=== PATIENT | female | born 1950 | race Two or more races ===

== ENCOUNTER 2022-01-03 22:40 | Inpatient (IN) | payer MEDICARE, OTHER ==
[~2022-01-03] VITALS: Ht 157.5 cm; Wt 68.0 kg
--- NOTE | 2022-01-03 23:47 | NUR ---
JEFF FROM HOME TO ER BED 8. AAOX4. NOT IN RESP DISTRESS, BREATHING EVEN AND UNLABORED. SATTING @ 96% ON RA. BROUGHT IN FOR COUGH, INTERMITENT FEVER, NAUSEA, VOMMITNG AND LOWER ABD PAIN.PT REPORTS THAT SHE HAS BEEN COVID POSTIVE SINCE SUNDAY. AWAITING MD FOR EVAL
[2022-01-04] MEDS ORDERED: IV NS 0.9% 1,000 ML BAG IV ONE ×2 (01:00→02:30)
--- NOTE | 2022-01-04 01:22 | NUR ---
IV LINE ESTABLISHED, LHAND 20G
--- NOTE | 2022-01-04 01:23 | NUR ---
COVID SWAB DONE AND SENT TO LAB
[2022-01-04 01:30] LABS: HEMATOCRIT 26 % (33-45); HEMOGLOBIN 8.7 g/dL (11.5-14.8); LYMPHOCYTES # (AUTO) 0.6 K/uL (0.8-4.8); LYMPHOCYTES % (AUTO) 2.6 % (20.0-44.0); MEAN CORPUSCULAR HGB CONC 33 g/dl (31.0-36.0); MEAN CORPUSCULAR VOLUME 83 fL (82-100); MONOCYTES # (AUTO) 1.5 K/uL (0.1-1.30); MONOCYTES % (AUTO) 6.6 % (2.0-12.0); NEUTROPHILS # (AUTO) 21.3 K/uL (1.8-8.9); NEUTROPHILS % (AUTO) 90.8 % (43.0-81.0); PLATELET COUNT (AUTO) 314 K/uL (150-450); RED BLOOD CELL COUNT(AUTO) 3.17 MIL/uL (4.0-5.2); WHITE BLOOD COUNT (AUTO) 23.5 K/uL (4.3-11.0)
--- NOTE | 2022-01-04 01:41 | NUR ---
URINE SAMPLE COLLECTED AND SENT TO LAB
[2022-01-04 02:14] LABS: CALCIUM, SERUM 9.2 mg/dL (8.5-10.1); CARBON DIOXIDE 23 mmol/L (21-32); CHLORIDE 95 mmol/L (98-107); CREATININE 1.6 mg/dL (0.6-1.3); GLUCOSE 122 mg/dL (74-106); POTASSIUM 3.9 mmol/L (3.5-5.1); SODIUM SERUM 130 mmol/L (136-145); UREA NITROGEN, BLOOD 22 mg/dL (7-18)
[2022-01-04 02:16] LABS: BILIRUBIN,URINE NEGATIVE (NEGATIVE); COLOR,URINE YELLOW (YELLOW); LEUKOCYTE ESTERASE ,URINE MODERATE (NEGATIVE); NITRITE, URINE POSITIVE (NEGATIVE); PH,URINE 8.5 (5.0-8.0); PROTEIN,URINE 100 mg/dl (NEGATIVE); UGLUCOSE NEGATIVE (NEGATIVE); UROBILINOGEN,URINE 0.2 EU/dL (0.2)
[2022-01-04] MEDS ORDERED: MEROPENEM 1 G in IV NS 0.9% 100 ML IV ONE (02:30)
[2022-01-04] MEDS ORDERED: VANCOMYCIN 1 GM in IV D5W 250 ML IV ONE (02:30)
[2022-01-04 02:33] LABS: ALANINE AMINOTRANSFERASE 135 U/L (12-78); ALBUMIN 2.2 g/dL (3.4-5.0); ALKALINE PHOSPHATASE 191 U/L (46-116); ASPARTATE AMINOTRANSFERASE 104 U/L (15-37); BILIRUBIN,DIRECT 0.2 mg/dL (0.0-0.2); BILIRUBIN,TOTAL 0.5 mg/dL (0.2-1.0)
[2022-01-04 02:40] LABS: BACTERIA,URINE Many /HPF (None Seen); SQUAMOUS EPITHELIAL CELL,UR Moderate /HPF (None Seen); WBC,URINE 21-50 /HPF (0-3)
[2022-01-04] MEDS ORDERED: VANCOMYCIN 1 GM VIAL ONE (02:43)
[2022-01-04] MEDS ORDERED: MEROPENEM 1 G VIAL IV ONE (02:43)
--- NOTE | 2022-01-04 03:12 | NUR ---
MRSA SWAB COLLECTED AND SENT TO LAB. PATIENT'S BELONGINGS LIST DONE.
[2022-01-04] MEDS ORDERED: Z GUARD REMEDY 4 OZ OINT TP PRN (03:30)
[2022-01-04 04:15] VITALS: BP 120/79
--- NOTE | 2022-01-04 04:15 | NUR ---
RN CARE MANAGER NOTE RECEIVED PATIENT VIA DEVAN. EMT TECH HELPED AMB TO BED. PATIENT HAS A RIGHT LEG CAST FOR LYMPHEDEMA. A/OX4. TOLERATING ROOM AIR. NO RESPIRATORY DISTRESS. NO COMPLAINTS OF PAIN, HAS ABDOMINAL CRAMPING IN RLQ, STATES FEELS CONSTIPATED. SINUS RHYTHM ON THE MONITOR. SKIN IS INTACT. VITAL SIGNS AND BELONGING LIST COMPLETED BY SPLITTER HAND. LEFT HAND #20 INTACT AND PATENT. PATIENT ALSO HAS A RIGHT CHEST WALL PORT-A- CATH. LLQ COLOSTOMY BAG INTACT. RIGHT BACK NEPHROTOMY WITH DRESSING DRY AND INTACT. BED IS LOW AND LOCKED, HOB ELEVATED IN SEMI FOWLERS, SIDE RAISL UP X2, CALL LIGHT WITHIN REACH. EXPLAINED USE.
--- NOTE | 2022-01-04 04:29 | NUR ---
PT TRANSFERRED TO 108 VIA ACLS
--- NOTE | 2022-01-04 04:44 | NUR ---
RN NOTE RECEIVED CRITICAL LAB FOR PROCAL 2.34, ADRIA LIRA NP INFORMED. ALSO INFORMED GLEN LIRA THAT PATIENT REFUSE HEPARIN AND ANY ANTICOAGULANT, WANTS TO SPEAK WITH MD FIRST.
[2022-01-04] MEDS: IV D5/0.45 NACL 1,000 ML IV PRN ×2 (04:54→18:53)
--- NOTE | 2022-01-04 06:43 | NUR ---
RN CLOSING NOTE PATIENT IS A/OX4. ROOM AIR. NO RESP DISTRESS. NO PAIN. SINUS RHYTHM. IV RUNNING D51/2 NS. BED IS LOW AND LOCKED, HOB ELEVATED IN SEMI FOWLERS, SIDE RAILS UP X2, CALL LIGHT WITHIN REACH.
[2022-01-04 07:08] LABS: BASOPHILS % (AUTO) 0.1 % (0.0-2.0); EOSINOPHILS % (AUTO) 0.1 % (0.0-6.0); HEMATOCRIT 23 % (33-45); HEMOGLOBIN 7.8 g/dL (11.5-14.8); LYMPHOCYTES # (AUTO) 0.8 K/uL (0.8-4.8); MEAN CORPUSCULAR HGB CONC 34 g/dl (31.0-36.0); MEAN CORPUSCULAR VOLUME 82 fL (82-100); MONOCYTES # (AUTO) 1.3 K/uL (0.1-1.30); MONOCYTES % (AUTO) 6.2 % (2.0-12.0); NEUTROPHILS % (AUTO) 89.6 % (43.0-81.0); PLATELET COUNT (AUTO) 272 K/uL (150-450); RED BLOOD CELL COUNT(AUTO) 2.85 MIL/uL (4.0-5.2); WHITE BLOOD COUNT (AUTO) 20.1 K/uL (4.3-11.0)
--- NOTE | 2022-01-04 07:35 | NUR ---
RN NOTE RECEIVED PT AWAKE, ALERT AND ORIENTED. NOT IN RESPIRATORY DISTRESS. CONTINUES ON ROOM AIR. WITH IV ACCESS ON L HAND G20 RUNNING WITH D5 1/2NS @75CC/HR. TOLERATING WELL. SAFETY MEASURES FOLLOWED. NEPHROSTOMY TUBE IN PLACE, DRAINING WELL. WILL CONTINUE TO MONITOR.
[2022-01-04 07:38] LABS: CREATININE 1.6 mg/dL (0.6-1.3); POTASSIUM 3.8 mmol/L (3.5-5.1)
[2022-01-04] MEDS: PANTOPRAZOLE 40 MG TABLET.DR PO SCH (07:42)
[2022-01-04] MEDS ORDERED: OXYC10TA49 PO (07:48)
[2022-01-04] MEDS ORDERED: LEVO100T9 PO (07:48)
[2022-01-04] MEDS ORDERED: ATOR20TA PO (07:48)
[2022-01-04] MEDS ORDERED: SERT50TA12 PO (07:48)
[2022-01-04 08:45] LABS: CALCIUM, SERUM 8.6 mg/dL (8.5-10.1); MAGNESIUM 1.9 mg/dL (1.8-2.4)
[2022-01-04] MEDS ORDERED: HEPARIN SODIUM, PORCINE 5000 UNITS/1 ML VIAL SQ SCH (09:00)
[2022-01-04 12:00] VITALS: BP 128/65
[2022-01-04 16:00] VITALS: BP 130/58
[2022-01-04] MEDS: MEROPENEM 1 G in IV NS 0.9% 100 ML IV SCH (17:02)
--- NOTE | 2022-01-04 19:04 | NUR ---
RN NOTE PT RESTING IN BED. AWAKE, ALERT AND ORIENTED. NOT IN RESPIRATORY DISTRESS. CONTINUES ON ROOM AIR. WITH IV ACCESS ON L HAND G20 RUNNING WITH D5 1/2NS @75CC/HR. TOLERATING WELL. SAFETY MEASURES FOLLOWED. NEPHROSTOMY TUBE IN PLACE, DRAINING WELL. WILL ENDORSE TO NEXT SHIFT. ALL DUE MEDICATIONS GIVEN.
[2022-01-04] MEDS: HYDROCODONE/APAP 5/325MG TABLET PO PRN (19:26)
--- NOTE | 2022-01-04 19:30 | NUR ---
C.O.D. BILLER OPENING NOTE RECEIVED PT IN BED, ALERT/ORIENTED X 4. ABLE TO MAKE NEEDS KNOWN. ON ROOM AIR, TOLERATING WELL WITH NO SIGNS OF ACUTE DISTRESS NOTED AT THIS TIME. NSR ON TELE MONITOR SATING AT 99%. WITH IV ACCESS ON L HAND #20g INFUSING D5 1/2 NS @75CC/HR. PT NOTED WITH R NEPHROSTOMY, DRAINING WELL AND LLQ COLOSTOMY. ALL SAFETY MEASURES IN PLACE. BED LOCKED IN LOWEST POSITION, BED ALARM ON. CALL LIGHT WITHIN REACH. WILL CONTINUE TO MONITOR FOR ANY CHANGES.
[2022-01-04 20:00] VITALS: BP 137/75
[2022-01-04] MEDS: ACETAMINOPHEN 325 MG TABLET PO PRN (20:18)
[2022-01-05] VITALS: BP 112/59
[2022-01-05] MEDS: MEROPENEM 1 G in IV NS 0.9% 100 ML IV SCH ×2 (01:09→13:59)
[2022-01-05] MEDS: VANCOMYCIN 0.75 GM in IV D5W 250 ML IV SCH (02:01)
[2022-01-05 04:00] VITALS: BP 138/58
[2022-01-05] MEDS: ACETAMINOPHEN 325 MG TABLET PO PRN ×2 (06:49→22:18)
[2022-01-05] MEDS: HYDROCODONE/APAP 5/325MG TABLET PO PRN ×2 (07:01→16:33)
[2022-01-05 07:20] LABS: BASOPHILS % (AUTO) 0.2 % (0.0-2.0); EOSINOPHILS % (AUTO) 0.3 % (0.0-6.0); HEMATOCRIT 25 % (33-45); HEMOGLOBIN 8.5 g/dL (11.5-14.8); LYMPHOCYTES # (AUTO) 0.7 K/uL (0.8-4.8); LYMPHOCYTES % (AUTO) 3.9 % (20.0-44.0); MEAN CORPUSCULAR HGB CONC 34 g/dl (31.0-36.0); MEAN CORPUSCULAR VOLUME 82 fL (82-100); MONOCYTES # (AUTO) 0.8 K/uL (0.1-1.30); MONOCYTES % (AUTO) 4.7 % (2.0-12.0); NEUTROPHILS # (AUTO) 16.1 K/uL (1.8-8.9); NEUTROPHILS % (AUTO) 90.9 % (43.0-81.0); PLATELET COUNT (AUTO) 343 K/uL (150-450); RED BLOOD CELL COUNT(AUTO) 3.08 MIL/uL (4.0-5.2); WHITE BLOOD COUNT (AUTO) 17.7 K/uL (4.3-11.0)
--- NOTE | 2022-01-05 07:48 | NUR ---
AGRICULTURAL CROP FARM MANAGER CLOSING NOTE PT IN BED, ALERT/ORIENTED X 4. ABLE TO MAKE NEEDS KNOWN. ON ROOM AIR, TOLERATING WELL WITH NO SIGNS OF ACUTE DISTRESS NOTED. NSR ON TELE MONITOR SATING AT 98%. WITH IV ACCESS ON L HAND #20g INFUSING D5 1/2 NS @75CC/HR. PT NOTED WITH R NEPHROSTOMY, DRAINING WELL AND LLQ COLOSTOMY. ALL DUE MEDS GIVEN. ALL SAFETY MEASURES FOLLOWED. BED LOCKED IN LOWEST POSITION, BED ALARM ON. CALL LIGHT WITHIN REACH. WILL ENDORSE TO AM SHIFT NURSE FOR BERNADETTE.
[2022-01-05 08:00] VITALS: BP 118/61
[2022-01-05 08:14] LABS: ALBUMIN 1.9 g/dL (3.4-5.0); BILIRUBIN,TOTAL 0.4 mg/dL (0.2-1.0); CREATININE 1.4 mg/dL (0.6-1.3); PHOSPHORUS 2.9 mg/dL (2.5-4.9); POTASSIUM 3.6 mmol/L (3.5-5.1); TOTAL PROTEIN, SERUM 6.8 g/dL (6.4-8.2)
[2022-01-05] MEDS: PANTOPRAZOLE 40 MG TABLET.DR PO SCH (08:54)
[2022-01-05 09:00] LABS: MAGNESIUM 1.8 mg/dL (1.8-2.4)
[2022-01-05 12:00] VITALS: BP 132/66
[2022-01-05] MEDS: LEVOTHYROXINE SODIUM 100 MCG TABLET PO SCH (15:09)
[2022-01-05] MEDS: SERTRALINE HCL 50 MG TABLET PO SCH (15:10)
[2022-01-05 16:00] VITALS: BP 138/74
[2022-01-05] MEDS: APIXABAN 5 MG TABLET PO SCH (18:10)
--- NOTE | 2022-01-05 18:40 | NUR ---
RN CLOSING NOTE PATIENT IS SITTING IN RESTING. A/O TIMES 4. O2 SATURATION AT 98%, READING NORMAL SINUS ON THE MONITOR. NO SIGNS OF DISTRESS PRESENT. WILL ENDORSE TO ONCOMING NURSE FOR BERNADETTE.
[2022-01-05 20:00] VITALS: BP 135/71
--- NOTE | 2022-01-05 20:00 | NUR ---
RN NOTE RECEIVED PT IN BED. AOX4. NOT IN ANY DISTRESS. DENIES ANY PAIN OR SOB. 97% ON RA. IV LHAND PATENT AND INTACT ON D51/2 NS AT 75ML/HR. NEPHROSTOMY IN PLACE DRAINING CLEAR URINE OUTPUT. COLOSTOMY BAG IN PLACE. WILL CONTINUE TO MONITOR.
[2022-01-05] MEDS: IV D5/0.45 NACL 1,000 ML IV PRN (21:07)
[2022-01-05] MEDS: MAGNESIUM HYDROXIDE 30 ML UDC PO PRN (21:07)
[2022-01-05] MEDS: ATORVASTATIN 10 MG TABLET PO SCH (21:08)
--- NOTE | 2022-01-05 22:18 | NUR ---
RN NOTE PT COMPLAINED ON PAIN ON R LEG. REQUESTED FOR TYLENOL. GIVEN ORDERED. WILL CONTINUE TO MONITOR
--- NOTE | 2022-01-05 23:00 | NUR ---
RN NOTE RELIEVED WITH PAIN.
[2022-01-06] VITALS (7 sets, daily range): BP systolic 132–155; BP diastolic 60–100
[2022-01-06] MEDS: MEROPENEM 1 G in IV NS 0.9% 100 ML IV SCH ×2 (01:44→13:57)
--- NOTE | 2022-01-06 02:01 | NUR ---
URINE COLLECTED. CALLED LAB FOR LABOUR MARKET ECONOMIST
[2022-01-06] MEDS: VANCOMYCIN 0.75 GM in IV D5W 250 ML IV SCH (02:38)
--- NOTE | 2022-01-06 07:00 | NUR ---
RN NOTE PT SLEEPING AROUSES EASILY. NOT IN ANY DISTRESS. TOLERATES ROOM AIR. REMAIN AFEBRILE. ABLE TO MAKE NEEDS KNOWN. ASSISTED TO BEDSIDE COMMODE. R LEG SWELLING, ELEVATED. CONTINUE ON IVFLUIDS, D5 1/2 NS, INFUSING WELL. NO SIGNS OF INFILTRATION NOTED. NO BM NOTED. NEPHROSTOMY IN PLACE, WITH 1000ML OUTPUT AND 3X VOIDED. WILL ENDORSE TO NEXT SHIFT NURSE FOR BERNADETTE.
--- NOTE | 2022-01-06 07:20 | NUR ---
RN OPENING NOTES: RECEIVED PT AWAKE, ALERT AND ORIENTED X 4. NOT IN RESPIRATORY DISTRESS. CONTINUES ON ROOM AIR. WITH IV ACCESS ON L HAND G20 RUNNING WITH D5 1/2NS @75CC/HR. TOLERATING WELL. SAFETY MEASURES FOLLOWED. NEPHROSTOMY TUBE IN PLACE, DRAINING WELL. CONTINUE DROPLET AND CONTACT ISOLATION FOR COVID , WILL CONTINUE TO MONITOR.
[2022-01-06] MEDS: PANTOPRAZOLE 40 MG TABLET.DR PO SCH (07:42)
[2022-01-06 07:49] LABS: BASOPHILS % (AUTO) 0.2 % (0.0-2.0); EOSINOPHILS % (AUTO) 0.9 % (0.0-6.0); HEMATOCRIT 25 % (33-45); HEMOGLOBIN 8.2 g/dL (11.5-14.8); LYMPHOCYTES # (AUTO) 0.8 K/uL (0.8-4.8); LYMPHOCYTES % (AUTO) 5.8 % (20.0-44.0); MEAN CORPUSCULAR HGB CONC 33 g/dl (31.0-36.0); MEAN CORPUSCULAR VOLUME 83 fL (82-100); MONOCYTES # (AUTO) 1.2 K/uL (0.1-1.30); MONOCYTES % (AUTO) 8.7 % (2.0-12.0); NEUTROPHILS # (AUTO) 11.3 K/uL (1.8-8.9); NEUTROPHILS % (AUTO) 84.4 % (43.0-81.0); PLATELET COUNT (AUTO) 361 K/uL (150-450); RED BLOOD CELL COUNT(AUTO) 3.01 MIL/uL (4.0-5.2); WHITE BLOOD COUNT (AUTO) 13.4 K/uL (4.3-11.0)
[2022-01-06] MEDS: SERTRALINE HCL 50 MG TABLET PO SCH (09:12)
[2022-01-06] MEDS: LEVOTHYROXINE SODIUM 100 MCG TABLET PO SCH (09:13)
[2022-01-06] MEDS: APIXABAN 5 MG TABLET PO SCH ×2 (09:19→17:36)
[2022-01-06] MEDS: HYDROCODONE/APAP 5/325MG TABLET PO PRN ×2 (09:31→20:31)
[2022-01-06] MEDS: MAGNESIUM HYDROXIDE 30 ML UDC PO PRN (09:31)
[2022-01-06 13:45] LABS: BAND % (MANUAL) 1 % (0.0-5.0); LYMPHOCYTES % (MANUAL) 6 % (16-48); MONOCYTES % (MANUAL) 8 % (0-11.0); MYELOCYTES % 1 % (0-0); NEUTROPHILS % (MANUAL) 84 (42-76)
[2022-01-06] MEDS: IV D5/0.45 NACL 1,000 ML IV PRN (13:59)
[2022-01-06 16:49] LABS: ALBUMIN 1.7 g/dL (3.4-5.0); BILIRUBIN,TOTAL 0.3 mg/dL (0.2-1.0); CALCIUM, SERUM 8.6 mg/dL (8.5-10.1); CREATININE 1.3 mg/dL (0.6-1.3); MAGNESIUM 1.8 mg/dL (1.8-2.4); PHOSPHORUS 3.1 mg/dL (2.5-4.9); POTASSIUM 4.1 mmol/L (3.5-5.1); TOTAL PROTEIN, SERUM 6.4 g/dL (6.4-8.2)
--- NOTE | 2022-01-06 19:10 | NUR ---
RN NOTES RECEIVED REPORT FROM MORNING RN. PATIENT IN BED A/O X4 ABLE TO MAKE NEEDS KNOWN. ON ROOM AIR TOLERATED WELL SATING 96% NO SOB NO DISTRESS NOTED AT THIS TIME. WITH IV ACCESS AT R AC # 18 PATENT FLUSHES WELL. WITH ONGOING IVF D5 1/2 NS RUNNING AT 75 CC/HR. WITH COLOSTOMY TUBE INTACT, NEPHROSTOMY TUBE PATENT DRAINING YELLOWISH URINE. ALL SAFETY MEASURES IN PLACE AT ALL TIMES. HOB ELEVATED. CALL LIGHT WITHIN REACH. BED ON LOWEST POSITION AND LOCKED. WILL CLOSELY MONITOR THE PATIENT
--- NOTE | 2022-01-06 19:33 | NUR ---
HOSPITALITY SPECIALIST CLOSING NOTE PT IN BED, ALERT/ORIENTED X 4. ABLE TO MAKE NEEDS KNOWN. ON ROOM AIR, TOLERATING WELL WITH NO SIGNS OF ACUTE DISTRESS NOTED. SINUS RHYTHM ON TELE MONITOR SATING AT 98%. WITH IV ACCESS ON R AC #18g INFUSING D5 1/2 NS @75CC/HR. PT NOTED WITH R NEPHROSTOMY, DRAINING WELL AND LLQ COLOSTOMY. ALL DUE MEDS GIVEN. ALL SAFETY MEASURES FOLLOWED. BED LOCKED IN LOWEST POSITION, BED ALARM ON. CALL LIGHT WITHIN REACH. WILL ENDORSE TO ONCOMING SHIFT NURSE FOR BERNADETTE.
--- NOTE | 2022-01-06 21:15 | NUR ---
RN NOTES PATIENT COMPLAINING THAT NORCO IS NOT WORKING ON HER PAIN AND SHE WANT OXYCODONE 20MG. AND NOTED WITH SMALL AMOUNT OF BLOOD DISCHARGE WHILE USING BEDSIDE COMMODE. DR LIRA INFORMED.
[2022-01-06] MEDS: ACETAMINOPHEN 325 MG TABLET PO PRN (21:43)
[2022-01-06] MEDS: ATORVASTATIN 10 MG TABLET PO SCH (21:43)
--- NOTE | 2022-01-06 22:00 | NUR ---
RN NOTES DR LIRA MADE A ORDER FOR OXYCODONE 5 MG GIVE 2 TABS PO. AND WILL INFORMED DR MACHUCA IN THE MORNING ABOUT THE ELIQUIS ORDER. WILL MONITOR ANY BLEEDING OR ANY CHANGES IN CONDITION
[2022-01-06] MEDS: oxyCODONE IR immediate release 5 MG PO PRN (23:57)
[2022-01-07] VITALS: BP 149/96
[2022-01-07] MEDS: MEROPENEM 1 G in IV NS 0.9% 100 ML IV SCH ×2 (02:38→14:13)
[2022-01-07] MEDS: VANCOMYCIN 0.75 GM in IV D5W 250 ML IV SCH (03:43)
[2022-01-07 04:00] VITALS: BP 143/73
[2022-01-07] MEDS: oxyCODONE IR immediate release 5 MG PO PRN ×3 (05:57→22:15)
--- NOTE | 2022-01-07 06:47 | NUR ---
RN NOTES PATIENT REMAINS STABLE NO SIGNIFICANT CHANGES IN HEALTH CONDITION. ALL DUE MEDS GIVEN ORDERED. PATIENT STILL ON TELE MONITOR SR. PATIENT WITH COLOSTOMY TUBE AND NEPHROSTOMY TUBE INTACT DRAINING YELLOWISH URINE. WITH IV ACCESS AT R AC PATENT CONNECTED ON CONTINUOS IVF OF D5 1/2 NS @75CC/HR. ALL SAFETY MEASURES IN PLACE AT ALL TIMES. WILL ENDORSED TO MORNING RN FOR BERNADETTE
--- NOTE | 2022-01-07 07:15 | NUR ---
MEDICAL TECHNOLOGIST GENERALIST OPENING NOTES: RECEIVED PT FOR CONTINUITY OF CARE. PATIENT A/OX4 IN NO S/SX OF ACUTE DISTRESS AT THIS TIME; CURRENTLY ON ROOM AIR; WITH 02 SAT 98% AT THIS TIME. WILL ENSURE SAFETY MEASURES WITHIN THE SHIFT. HEAD OF BED ELEVATED. BED IS LOCKED, IN LOWEST POSITION AND SIDE RAILS UP. CALL LIGHT WITHIN REACH OF THE PATIENT. APPLICABLE ISOLATION PRECAUTIONS IN PLACE. WILL CONTINUE TO MONITOR AND REASSESS FOR ANY CHANGES AND WILL CARRY OUT ANY ONGOING AND ACTIVE MD ORDER.
[2022-01-07 07:29] LABS: BASOPHILS # (AUTO) 0.1 K/uL (0.0-0.2); BASOPHILS % (AUTO) 0.5 % (0.0-2.0); EOSINOPHILS % (AUTO) 1.4 % (0.0-6.0); HEMATOCRIT 23 % (33-45); HEMOGLOBIN 7.8 g/dL (11.5-14.8); LYMPHOCYTES % (AUTO) 8.8 % (20.0-44.0); MEAN CORPUSCULAR HGB CONC 34 g/dl (31.0-36.0); MEAN CORPUSCULAR VOLUME 81 fL (82-100); MONOCYTES # (AUTO) 1.5 K/uL (0.1-1.30); MONOCYTES % (AUTO) 12.9 % (2.0-12.0); NEUTROPHILS # (AUTO) 8.8 K/uL (1.8-8.9); NEUTROPHILS % (AUTO) 76.4 % (43.0-81.0); PLATELET COUNT (AUTO) 363 K/uL (150-450); RED BLOOD CELL COUNT(AUTO) 2.82 MIL/uL (4.0-5.2); WHITE BLOOD COUNT (AUTO) 11.5 K/uL (4.3-11.0)
[2022-01-07] MEDS: PANTOPRAZOLE 40 MG TABLET.DR PO SCH (07:44)
[2022-01-07 07:51] LABS: ALBUMIN 1.7 g/dL (3.4-5.0); BILIRUBIN,TOTAL 0.3 mg/dL (0.2-1.0); CALCIUM, SERUM 8.6 mg/dL (8.5-10.1); CREATININE 1.3 mg/dL (0.6-1.3); MAGNESIUM 1.8 mg/dL (1.8-2.4); PHOSPHORUS 3.2 mg/dL (2.5-4.9); POTASSIUM 3.9 mmol/L (3.5-5.1); TOTAL PROTEIN, SERUM 6.2 g/dL (6.4-8.2)
[2022-01-07 08:00] VITALS: BP 127/64
[2022-01-07] MEDS: LEVOTHYROXINE SODIUM 100 MCG TABLET PO SCH (08:23)
[2022-01-07] MEDS: SERTRALINE HCL 50 MG TABLET PO SCH (08:23)
[2022-01-07] MEDS: APIXABAN 5 MG TABLET PO SCH ×2 (09:00→16:29)
[2022-01-07 09:37] LABS: BAND % (MANUAL) 1 % (0.0-5.0); EOSINOPHILS % (MANUAL) 3 % (0-4); LYMPHOCYTES % (MANUAL) 9 % (16-48); MONOCYTES % (MANUAL) 11 % (0-11.0); NEUTROPHILS % (MANUAL) 76 (42-76)
[2022-01-07] MEDS: ONDANSETRON HCL/PF 4 MG/2 ML VIAL IVP PRN (11:40)
[2022-01-07] MEDS: IV D5/0.45 NACL 1,000 ML IV PRN (11:48)
[2022-01-07 12:00] VITALS: BP 192/101
[2022-01-07] MEDS: MAGNESIUM HYDROXIDE 30 ML UDC PO PRN (13:00)
--- NOTE | 2022-01-07 13:35 | NUR ---
rn notes: seen by DR Franchesca brown made aware of the bleeding she has, she is refusing eliquis and that she vomited x 1, no new orders at this time
--- NOTE | 2022-01-07 13:50 | NUR ---
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
--- NOTE | 2022-01-07 14:00 | NUR ---
RN notes: midline inserted to left upper arm with no complications noted at this time
[2022-01-07 16:00] VITALS: BP 146/59
--- NOTE | 2022-01-07 16:29 | NUR ---
RN notes: pt refused to take eliquis, explained risk and benefits still refuses
--- NOTE | 2022-01-07 19:10 | NUR ---
RN OPENING NOTES RECEIVED PATIENT ON BED, ALERT AND VERBALLY RESPONSIVE, ON ROOM AIR SATING AT 97%, RESPIRATORY EVEN AND UNLABORED, NO SOB NOTED, NOT IN ACUTE DISTRESS. REMAIN AFEBRILE. NOTED WITH MEMO MID LINE, PATENT, INTACT. FLUSHED WITH NS, NO S/S OF INFILTRATION NOTED AT SITE. RUNNING WITH D5 1/2 NS @ 75 ML/HR. NOTED WITH RIGHT NEPHROSTOMY TUBE CONNECTED TO BAG PATENT, INTACT DRAINING WITH CLEAR YELLOW URINE VIA GRAVITY. WITH COLOSTOMY BAG INTACT NO LEAKING, NO IRRITATION AROUND THE STOMA. ALL SAFETY MEASURE PROVIDED. BED IN LOWEST POSITION, LOCKED. BED ALARM ARMED. CALL LIGHT WITH IN REACH. CONTINUE TO MONITOR.
[2022-01-07 20:00] VITALS: BP 126/54
[2022-01-07] MEDS: ATORVASTATIN 10 MG TABLET PO SCH (21:54)
--- NOTE | 2022-01-07 22:10 | NUR ---
RN NOTES PATIENT C/O RIGHT LEG PAIN, BP 130/70, P- 69, RR- 19. OXYCODONE 10MG GIVEN PER MD'S ORDERED
[2022-01-07] MEDS: ACETAMINOPHEN 325 MG TABLET PO PRN (23:26)
[2022-01-08] VITALS: BP 143/62
--- NOTE | 2022-01-08 01:00 | NUR ---
RN NOTES PER PATIENT PAIN MEDICATION IS NOT WORKING, SHE'S STILL IN SEVERE PAIN, OPTICAL DISPENSER PANKAJ NOTIFIED WITH NEW ORDER DILAUDID 0.25MG IV ONCE NOTED AND CARRIED OUT.
[2022-01-08] MEDS ORDERED: HYDROMORPHONE 1 MG/1 ML DISP.SYRIN IV ONE (01:30)
[2022-01-08] MEDS: MEROPENEM 1 G in IV NS 0.9% 100 ML IV SCH ×2 (01:40→14:28)
[2022-01-08] MEDS: IV D5/0.45 NACL 1,000 ML IV PRN ×2 (03:40→18:58)
[2022-01-08] MEDS: VANCOMYCIN 1 GM in IV D5W 250 ML IV SCH (03:40)
[2022-01-08 04:00] VITALS: BP 135/64
[2022-01-08] MEDS: oxyCODONE IR immediate release 5 MG PO PRN ×3 (06:06→19:18)
[2022-01-08 07:18] LABS: BASOPHILS % (AUTO) 0.3 % (0.0-2.0); EOSINOPHILS % (AUTO) 1.2 % (0.0-6.0); HEMATOCRIT 24 % (33-45); HEMOGLOBIN 8.1 g/dL (11.5-14.8); LYMPHOCYTES # (AUTO) 1.1 K/uL (0.8-4.8); MEAN CORPUSCULAR HGB CONC 34 g/dl (31.0-36.0); MEAN CORPUSCULAR VOLUME 81 fL (82-100); MONOCYTES # (AUTO) 1.5 K/uL (0.1-1.30); NEUTROPHILS # (AUTO) 9.8 K/uL (1.8-8.9); NEUTROPHILS % (AUTO) 77.5 % (43.0-81.0); PLATELET COUNT (AUTO) 380 K/uL (150-450); RED BLOOD CELL COUNT(AUTO) 2.94 MIL/uL (4.0-5.2); WHITE BLOOD COUNT (AUTO) 12.6 K/uL (4.3-11.0)
--- NOTE | 2022-01-08 07:26 | NUR ---
RN NOTES PATIENT REMAIN STABLE THROUGH OUT THE SHIFT. RESPIRATORY EVEN AND UNLABORED, NO SOB NOTED, NOT IN ACUTE DISTRESS. REMAIN AFEBRILE. NOTED WITH RIGHT NEPHROSTOMY TUBE CONNECTED TO BAG PATENT, INTACT DRAINING WITH CLEAR YELLOW URINE VIA GRAVITY. WITH COLOSTOMY BAG INTACT NO LEAKING, ALL DUE MEDS GIVEN PER MD'S ORDERED. ALL SAFETY MEASURE PROVIDED. BED IN LOWEST POSITION, LOCKED. BED ALARM ARMED. CALL LIGHT WITH IN REACH. REPORT GIVEN TO MORNING SHIFT NURSE.
--- NOTE | 2022-01-08 07:30 | NUR ---
RN OPENING NOTE PATIENT IS IN BED, ASLEEP, ON SEMI-HAMLIN'S POSITION. ALERT, ORIENTED X 4. ON ROOM AIR WITH O2 SATURATION AT 97%. SINUS RHYTHM ON CONSTRUCTION SERVICES TECHNICIAN. WITH NEPHROSTOMY TUBE DRAINING TO CLEAR YELLOW URINE. WITH COLOSTOMY BAG INTACT. WITH LEFT UPPER ARM MIDLINE INFUSING WITH D5 1/2 NS AT 75 ML/HR. DENIES PAIN AT THIS TIME, NOT IN ANY FORM OF DISTRESS. BED IS IN LOWEST POSITION, 3 SIDE RAILS UP, CALL LIGHT WITHIN REACH. WILL CONTINUE TO MONITOR THROUGHOUT SHIFT.
[2022-01-08 08:00] VITALS: BP 137/72
[2022-01-08 08:10] LABS: ALBUMIN 1.8 g/dL (3.4-5.0); BILIRUBIN,TOTAL 0.3 mg/dL (0.2-1.0); CALCIUM, SERUM 8.7 mg/dL (8.5-10.1); CREATININE 1.3 mg/dL (0.6-1.3); MAGNESIUM 1.8 mg/dL (1.8-2.4); PHOSPHORUS 3.4 mg/dL (2.5-4.9); TOTAL PROTEIN, SERUM 6.3 g/dL (6.4-8.2)
[2022-01-08 08:37] LABS: BAND % (MANUAL) 2 % (0.0-5.0); LYMPHOCYTES % (MANUAL) 6 % (16-48); METAMYELOCYTES % 3 % (0-0); MONOCYTES % (MANUAL) 8 % (0-11.0); NEUTROPHILS % (MANUAL) 81 (42-76)
[2022-01-08] MEDS: APIXABAN 5 MG TABLET PO SCH ×2 (09:00→17:00)
[2022-01-08] MEDS: LEVOTHYROXINE SODIUM 100 MCG TABLET PO SCH (09:30)
[2022-01-08] MEDS: SERTRALINE HCL 50 MG TABLET PO SCH (09:30)
[2022-01-08] MEDS: PANTOPRAZOLE 40 MG TABLET.DR PO SCH (09:39)
--- NOTE | 2022-01-08 10:31 | NUR ---
RN NOTE PATIENT VERBALIZED PAIN 7-8. OXYCODONE GIVEN NOW. PER WORKPLACE REHABILITATION OFFICER NURSE, LAST DOSE WAS GIVEN AT 0400 BUT WAS SCANNED LATE. PYXIS RECORD ALSO SHOWED IT WAS PULLED OUT AT 0400. PER PATIENT, MEDICATION WAS GIVEN AT 0430H. CHARGE NURSE MADE AWARE. SEE MISCELLANEOUS ORDER.
[2022-01-08 12:00] VITALS: BP 153/70
[2022-01-08] MEDS: ONDANSETRON HCL/PF 4 MG/2 ML VIAL IVP PRN (13:04)
[2022-01-08 16:00] VITALS: BP 146/71
[2022-01-08] MEDS: ACETAMINOPHEN 325 MG TABLET PO PRN (18:23)
--- NOTE | 2022-01-08 18:46 | NUR ---
RN CLOSING NOTE PATIENT REMAINS ALERT ORIENTED X 4. VERBALIZES HEADACHE AND TYLENOL WAS GIVEN PRN ORDERED. ON ROOM AIR WITH O2 SATURATION AT 97%. WITH LEFT UPPER ARM MIDLINE INFUSING WITH D5 1/2 NS AT 75 CC/HR. NEPHROSTOMY TUBE INTACT AND COVERED WITH DRY DRESSING. COLOSTOMY INTACT. PATIENT REMAINED STABLE THROUGHOUT SHIFT. ALL HOSPITAL PRECAUTIONS IN PLACE. WILL ENDORSE TO CARDIOVASCULAR LAB DIRECTOR NURSE.
--- NOTE | 2022-01-08 19:55 | NUR ---
DOCUMENT PREPARER MICROFILMING OPENING NOTE RECEIVED PATIENT IN BED, AWAKE, ALERT, ORIENTED X 4. ON ROOM AIR TOLERATING WELL, NO DISTRESS OR DISCOMFORT NOTED AT THIS TIME, HOB ELEVATED FOR MAXIMUM LUNG EXPANSION, BREATHING EVEN AND UNLABORED. ON TELEMONITORING CURRENTLY READING SR AT 60'S BPM. WITH NEPHROSTOMY TUBE DRAINING TO CLEAR YELLOW URINE. WITH COLOSTOMY BAG INTACT. WITH LEFT UPPER ARM MIDLINE INFUSING WITH D5 1/2 NS AT 75 ML/HR. NO INFILTRATION NOTED, CALL LIGHT WITHIN REACH, BED IN LOWEST AND LOCKED POSITION, BED ALARM ON, WILL CONTINUE TO MONITOR THROUGHOUT SHIFT.
[2022-01-08 20:00] VITALS: BP 139/63
[2022-01-08] MEDS: ATORVASTATIN 10 MG TABLET PO SCH (21:00)
[2022-01-09] VITALS: BP 127/57
[2022-01-09] MEDS: MEROPENEM 1 G in IV NS 0.9% 100 ML IV SCH ×2 (01:56→13:48)
[2022-01-09] MEDS: oxyCODONE IR immediate release 5 MG PO PRN ×3 (01:57→18:15)
[2022-01-09] MEDS: VANCOMYCIN 1 GM in IV D5W 250 ML IV SCH (02:42)
[2022-01-09 04:00] VITALS: BP 127/61
[2022-01-09] MEDS: IV D5/0.45 NACL 1,000 ML IV PRN ×3 (04:32→23:47)
--- NOTE | 2022-01-09 06:32 | NUR ---
FIRE PREVENTION CHIEF CLOSING NOTE PATIENT IN BED SLEEPING BUT EASILY AROUSABLE TO TOUCH AND VOICE, A/O X 4. ABLE TO MAKE NEEDS KNOWN, ON ROOM AIR WITH O2 SATURATION AT 97%. WITH LEFT UPPER ARM MIDLINE INFUSING WITH D5 1/2 NS AT 75 CC/HR. NEPHROSTOMY TUBE INTACT AND COVERED WITH DRY DRESSING. COLOSTOMY INTACT. PT ABLE TO AMBULATE WITH ASSIST, ALL DUE MEDS GIVEN, ISOLATION PRECAUTION IN PLACE, KEPT DRY AND CLEAN, CALL LIGHT WITHIN REACH, BED IN LOWEST AND LOCKED POSITION, WILL ENDORSE TO AM SHIFT NURSE.
[2022-01-09 07:12] LABS: BASOPHILS # (AUTO) 0.1 K/uL (0.0-0.2); BASOPHILS % (AUTO) 0.5 % (0.0-2.0); HEMATOCRIT 24 % (33-45); HEMOGLOBIN 8.3 g/dL (11.5-14.8); LYMPHOCYTES # (AUTO) 0.8 K/uL (0.8-4.8); LYMPHOCYTES % (AUTO) 7.8 % (20.0-44.0); MEAN CORPUSCULAR HGB CONC 35 g/dl (31.0-36.0); MEAN CORPUSCULAR VOLUME 81 fL (82-100); MONOCYTES # (AUTO) 1.3 K/uL (0.1-1.30); NEUTROPHILS # (AUTO) 8.2 K/uL (1.8-8.9); NEUTROPHILS % (AUTO) 77.7 % (43.0-81.0); PLATELET COUNT (AUTO) 379 K/uL (150-450); RED BLOOD CELL COUNT(AUTO) 2.95 MIL/uL (4.0-5.2); WHITE BLOOD COUNT (AUTO) 10.6 K/uL (4.3-11.0)
[2022-01-09 07:47] LABS: CREATININE 1.2 mg/dL (0.6-1.3); POTASSIUM 4.2 mmol/L (3.5-5.1)
[2022-01-09] MEDS: PANTOPRAZOLE 40 MG TABLET.DR PO SCH (07:56)
[2022-01-09 08:00] VITALS: BP 147/70
[2022-01-09 09:23] LABS: BAND % (MANUAL) 4 % (0.0-5.0); EOSINOPHILS % (MANUAL) 1 % (0-4); LYMPHOCYTES % (MANUAL) 12 % (16-48); METAMYELOCYTES % 2 % (0-0); MONOCYTES % (MANUAL) 10 % (0-11.0); MYELOCYTES % 2 % (0-0); NEUTROPHILS % (MANUAL) 69 (42-76)
[2022-01-09] MEDS: LEVOTHYROXINE SODIUM 100 MCG TABLET PO SCH (09:57)
[2022-01-09] MEDS: SERTRALINE HCL 50 MG TABLET PO SCH (09:57)
[2022-01-09] MEDS: APIXABAN 5 MG TABLET PO SCH ×2 (09:58→17:00)
[2022-01-09 12:00] VITALS: BP 129/61
[2022-01-09 16:00] VITALS: BP 137/62
[2022-01-09] MEDS: CEFTRIAXONE 1 G in IV D5W 50 ML IV SCH (16:18)
--- NOTE | 2022-01-09 19:45 | NUR ---
PAPER CONE MACHINE TENDER OPENING NOTE RECEIVED PATIENT AWAKE IN BED A/O X4, ABLE TO MAKE NEEDS KNOWN, ON RA TOLERATING WELL, NO DISTRESS OR DISCOMFORT NOTED AT THIS TIME, HOB ELEVATED FOR MAXIMUM LUNG EXPANSION, BREATHING EVEN AND UNLABORED. ON TELEMONITORING. NOTED WITH LEFT UPPER ARM MIDLINE INFUSING WITH D5 1/2 NS AT 75 ML/HR. NO INFILTRATION NOTED, CALL LIGHT WITHIN REACH, BED IN LOWEST AND LOCKED POSITION, BED ALARM ON, WILL CONTINUE TO MONITOR THROUGHOUT SHIFT.
[2022-01-09 20:00] VITALS: BP 123/54
[2022-01-09] MEDS: ATORVASTATIN 10 MG TABLET PO SCH (21:55)
[2022-01-09] MEDS: ONDANSETRON HCL/PF 4 MG/2 ML VIAL IVP PRN (23:56)
[2022-01-10] VITALS (10 sets, daily range): BP systolic 99–137; BP diastolic 46–67
[2022-01-10] MEDS: oxyCODONE IR immediate release 5 MG PO PRN (00:19)
--- NOTE | 2022-01-10 04:20 | NUR ---
RN NOTE NOTED PT'S UNDERPADS WITH HIGH AMOUNT OF BLOOD OUTPUT COMING FROM THE CERVIX, V/S TAKEN AT BP 129/62, SATING 99%, HR 72 BPM, TEMP 98.8, RR 17 BPM RA. CALLED DUMPMAN DR. LIRA ABOUT THE BLEEDING STILL ONGOING, DR ORDERED AM LABS TO BE DRAWN NOW AND AM ULTRASOUND. WILL CONT TO MONITOR.
--- NOTE | 2022-01-10 04:40 | NUR ---
RN NOTES LABS CAME IN TO DRAW BLOOD. PT VERBALIZED "LAST TIME I HAD THIS KIND OF BLEEDING WAS WHEN I WAS TAKING ELIQUIS AT HOME". INFORMED CN AND ASKED PUBLIC RELATIONS PROFESSIONAL DR TO SEE THE PATIENT, HE SAID WE'LL WAIT FOR THE LAB RESULT AND FOLLOW UP WITH THE EPIC IN AM. WILL CONT TO MONITOR CLOSELY.
[2022-01-10 04:47] LABS: BASOPHILS # (AUTO) 0.1 K/uL (0.0-0.2); BASOPHILS % (AUTO) 0.6 % (0.0-2.0); EOSINOPHILS % (AUTO) 1.9 % (0.0-6.0); HEMATOCRIT 22 % (33-45); HEMOGLOBIN 7.6 g/dL (11.5-14.8); LYMPHOCYTES # (AUTO) 1.1 K/uL (0.8-4.8); LYMPHOCYTES % (AUTO) 10.2 % (20.0-44.0); MEAN CORPUSCULAR HGB CONC 34 g/dl (31.0-36.0); MEAN CORPUSCULAR VOLUME 81 fL (82-100); NEUTROPHILS # (AUTO) 8.6 K/uL (1.8-8.9); NEUTROPHILS % (AUTO) 78.3 % (43.0-81.0); PLATELET COUNT (AUTO) 381 K/uL (150-450); RED BLOOD CELL COUNT(AUTO) 2.73 MIL/uL (4.0-5.2); WHITE BLOOD COUNT (AUTO) 10.9 K/uL (4.3-11.0)
[2022-01-10 05:03] LABS: ALBUMIN 1.8 g/dL (3.4-5.0); BILIRUBIN,TOTAL 0.2 mg/dL (0.2-1.0); CALCIUM, SERUM 8.4 mg/dL (8.5-10.1); CREATININE 1.1 mg/dL (0.6-1.3); MAGNESIUM 1.6 mg/dL (1.8-2.4); PHOSPHORUS 3.2 mg/dL (2.5-4.9); POTASSIUM 4.3 mmol/L (3.5-5.1); TOTAL PROTEIN, SERUM 6.3 g/dL (6.4-8.2)
--- NOTE | 2022-01-10 07:27 | NUR ---
FIELD CONTACT PERSON CLOSING NOTE PATIENT IN BED AWAKE, A/O X 4. ABLE TO MAKE NEEDS KNOWN, ON ROOM AIR WITH O2 SATURATION AT 97%. WITH LEFT UPPER ARM MIDLINE INFUSING WITH D5 1/2 NS AT 75 CC/HR. NEPHROSTOMY TUBE INTACT AND COVERED WITH DRY DRESSING. COLOSTOMY INTACT. PT ABLE TO AMBULATE WITH ASSIST, ALL DUE MEDS GIVEN, ISOLATION PRECAUTION IN PLACE, KEPT DRY AND CLEAN, NPO MAINTAINED FROM MN TO 6AM, ENDORSE TO BE BACK TO NPO P 8AM, ALL NEEDS ATTENDED, CALL LIGHT WITHIN REACH, BED IN LOWEST AND LOCKED POSITION, WILL ENDORSE TO AM SHIFT NURSE FOR BERNADETTE.
[2022-01-10] MEDS: PANTOPRAZOLE 40 MG TABLET.DR PO SCH (07:30)
[2022-01-10] MEDS: APIXABAN 5 MG TABLET PO SCH ×2 (09:00→16:29)
[2022-01-10] MEDS: SERTRALINE HCL 50 MG TABLET PO SCH (09:00)
[2022-01-10] MEDS: LEVOTHYROXINE SODIUM 100 MCG TABLET PO SCH (09:00)
[2022-01-10] MEDS: Magnesium 1GM/D5W 100ML PREMIX 100 ML IV SCH ×2 (10:12→11:22)
--- NOTE | 2022-01-10 10:48 | NUR ---
BLISS PRESS OPERATOR NOTE PT IN BED ALERT, AWAKE, ON RM AIR, NO SOB NOTED, ON TELE MONITOR, SINUS RATE HR 86, PT HAS RT SIDE NEPHROSTOMY WITH YELLOW URINE NOTED, WITH COLOSTOMY ON LOWER ABDOMEN ON NPO STATUS AT THIS TIME PATIENT WILL HAVE SURGERY IVF ON IVF ORDERED, BED IN LOWEST AND LOCKED POSITION , ALSO PATIENT HAVE BLEEDING FROM VAGINAL AREA, MOD AMT KEEP CLEAN DRY, VS STABLE CALLED TO JASVIR RUBIN STATED THAT WILL SEE PATENT SOON ,
--- NOTE | 2022-01-10 10:52 | NUR ---
LABOR RELATIONS DIRECTOR NOTE CHECKED FOR BLEEDING STILL NOTED WITH SOME CLOTS KEEP CLEAN DRY AWAITING G FOR SCOTTIE RN DNP
--- NOTE | 2022-01-10 11:46 | NUR ---
BOTTOM TURNER NOTE NOTIFIED TO JASVIR RUBIN DNP THAT PATIENT STILL BLEEDING REFUSED TO SIGN CONSENT FOR PROCEDURE , WANTS TO TALK TO DOCTOR FIRST, HG 7.6 ORDERED 1 UNIT PRBC
[2022-01-10] MEDS: HYDROMORPHONE 1 MG/1 ML DISP.SYRIN IV PRN (12:46)
--- NOTE | 2022-01-10 12:55 | NUR ---
AUDIOVISUAL LIBRARIAN NOTE CONSENT DONE FOR PROCEDURE SCOTTIE RN DNP AT BEDSIDE EXAMINED PATIENT .US ABDOMEN DONE , DILAUDID FOR PAIN GIVEN ORDERED
--- NOTE | 2022-01-10 13:51 | NUR ---
TELE,RN NOTE CALLED BLOOD BANK BLOOD NOT READY YET
[2022-01-10] MEDS: CEFTRIAXONE 1 G in IV D5W 50 ML IV SCH (15:21)
--- NOTE | 2022-01-10 15:44 | NUR ---
telephonic case manager note blood ready to pick and shovel worker but unable to do at this time atb is administering
[2022-01-10] MEDS ORDERED: FENTANYL PF 100MCG/2ML AMPUL ONE (15:45)
[2022-01-10] MEDS ORDERED: MIDAZOLAM HCL 2 MG/2ML VIAL ONE (15:45)
[2022-01-10] MEDS ORDERED: HEPARIN SODIUM, PORCINE 1,000 UNIT/ML VIAL ONE (15:54)
[2022-01-10] MEDS ORDERED: LIDOCAINE 1% INJ 50 ML MDV IJ ONE (15:54)
[2022-01-10] MEDS ORDERED: IOHEXOL 240MG/ML 50 ML IV ONE (15:54)
--- NOTE | 2022-01-10 16:30 | NUR ---
telephone cleaner note i unit prbc started as ordered will monitor
--- NOTE | 2022-01-10 17:20 | NUR ---
receptionist telephone operator note taken to or with blood transfusion administering
[2022-01-10] MEDS ORDERED: methylPREDNISolone SOD SUCC 125 MG/2ML VIAL ONE (17:44)
[2022-01-10] MEDS ORDERED: oxyCODONE IR immediate release 5 MG PO PRN (18:00)
[2022-01-10] MEDS ORDERED: methylPREDNISolone SOD SUCC 125 MG/2ML VIAL IV SCH (18:00)
[2022-01-10] MEDS ORDERED: diphenhydrAMINE HCL 50 MG/ML VIAL IV ONE (18:00)
--- NOTE | 2022-01-10 18:29 | NUR ---
LEAD PHARMACY TECHNICIAN NOTE BENADRYL WAS H GIVEN BY OR NURSE ON OR
--- NOTE | 2022-01-10 18:35 | NUR ---
READING COACH NOTE PATIENT BACK FROM OR ALERT ORIENTED LT GROIN DRESSING IN PLACE ,NO BLEEDING NOTED ALERT ORIENTED, NO SOB NOTED, ON RA SATURATION 97% AT THIS TIME CONT ON BLOOD TRANSFUSION ORDERED
--- NOTE | 2022-01-10 18:50 | NUR ---
ADMINISTRATIVE SUPPORT MANAGER NOTE PT IN BED ALERT, AWAKE, ON RM AIR, NO SOB NOTED, ON TELE MONITOR, SINUS RATE HR 86, PT HAS RT SIDE NEPHROSTOMY WITH YELLOW URINE NOTED, WITH COLOSTOMY ON LOWER ABDOMEN. COLOSTOMY BAG CHANGED. WITH ONGOING BLOOD TRANSFUSION. , BED IN LOWEST AND LOCKED POSITION , PATIENT STILL HAVING MODERATE AMOUNT OF BLEEDING IN THE PERINEAL AREA. KEPT CLEAN AND DRY, VS BP 147/102, PULSE 169, O2 SAT 98%. WILL ENDORSE TO NEXT NURSE ON DUTY FOR CONTINUATION OF CARE.
--- NOTE | 2022-01-10 19:10 | NUR ---
ADVISORY INTERN OPENING NOTE RECEIVED ENDORSEMENT FROM AM SHIFT NURSE SAYING PT CAME BACK FROM THE ER AROUND 30 MINS AGO. PATIENT SLEEPING COMFORTABLY IN BED, ON ROOM AIR TOLERATING WELL, NO DISTRESS OR DISCOMFORT NOTED AT THIS TIME, HOB ELEVATED FOR MAXIMUM LUNG EXPANSION, BREATHING EVEN AND UNLABORED. ON TELEMONITORING CURRENTLY READING SR. WITH NEPHROSTOMY TUBE DRAINING TO GRAVITY. WITH COLOSTOMY BAG INTACT. WITH BLOOD TRANSFUSION RUNNING AT 120 CC/HR. NO INFILTRATION NOTED, CALL LIGHT WITHIN REACH, BED IN LOWEST AND LOCKED POSITION, BED ALARM ON, WILL CONTINUE TO MONITOR THROUGHOUT THE SHIFT.
--- NOTE | 2022-01-10 20:00 | NUR ---
RN NOTE BLOOD TRANFUSION COMPLETED, NO REACTION NOTED, V/S TAKEN AT BP 126/67, HR 69 BPM, T 98.6, RR 17, SATING AT 97%. IV FLUID OF D5 1/2 NS AT 75 CC/HR RESUMED. COMFORT MEASURES PROVIDED, WILL CONT TO MONITOR.
[2022-01-10] MEDS: ATORVASTATIN 10 MG TABLET PO SCH (22:07)
[2022-01-10] MEDS: IV D5/0.45 NACL 1,000 ML IV PRN (22:51)
[2022-01-11] VITALS (7 sets, daily range): BP systolic 108–150; BP diastolic 50–84
--- NOTE | 2022-01-11 02:30 | NUR ---
RN NOTE LABS CAME TO DRAW BLOOD FOR VANCOMYCIN THROUGH AND AM LABS, PT NOTED WITH PALE SKIN APPEARANCE BUT RESTING COMFORTABLY ON BED. WILL CONT TO MONITOR.
[2022-01-11 02:40] LABS: BASOPHILS % (AUTO) 0.2 % (0.0-2.0); HEMATOCRIT 22 % (33-45); HEMOGLOBIN 7.5 g/dL (11.5-14.8); LYMPHOCYTES # (AUTO) 0.5 K/uL (0.8-4.8); LYMPHOCYTES % (AUTO) 2.8 % (20.0-44.0); MEAN CORPUSCULAR HGB CONC 34 g/dl (31.0-36.0); MEAN CORPUSCULAR VOLUME 80 fL (82-100); MONOCYTES # (AUTO) 0.3 K/uL (0.1-1.30); MONOCYTES % (AUTO) 1.7 % (2.0-12.0); NEUTROPHILS % (AUTO) 95.3 % (43.0-81.0); PLATELET COUNT (AUTO) 287 K/uL (150-450); RED BLOOD CELL COUNT(AUTO) 2.79 MIL/uL (4.0-5.2); WHITE BLOOD COUNT (AUTO) 16.8 K/uL (4.3-11.0)
[2022-01-11 03:30] LABS: CALCIUM, SERUM 8.1 mg/dL (8.5-10.1); CREATININE 1.2 mg/dL (0.6-1.3); MAGNESIUM 2.1 mg/dL (1.8-2.4); PHOSPHORUS 3.3 mg/dL (2.5-4.9); POTASSIUM 4.5 mmol/L (3.5-5.1)
--- NOTE | 2022-01-11 06:53 | NUR ---
EARLY CHILDHOOD EDUCATOR AIDE CLOSING NOTE PATIENT SLEEPING COMFORTABLY IN BED, ON ROOM AIR TOLERATING WELL, NO DISTRESS OR DISCOMFORT NOTED AT THIS TIME, HOB ELEVATED FOR MAXIMUM LUNG EXPANSION, BREATHING EVEN AND UNLABORED. ON TELEMONITORING CURRENTLY READING SR AT 67 BPM. WITH NEPHROSTOMY TUBE DRAINING TO GRAVITY. WITH COLOSTOMY BAG INTACT. WITH D5 1/2 NS RUNNING AT 75 ML/HR. NO INFILTRATION NOTED, ALL NEEDS ATTENDED, KEPT DRY AND CLEAN, CALL LIGHT WITHIN REACH, BED IN LOWEST AND LOCKED POSITION, BED ALARM ON, WILL ENDORSE TO AM SHIFT FOR BERNADETTE.
--- NOTE | 2022-01-11 07:39 | NUR ---
FLIGHT TECHNICIAN OPENING NOTE RECEIVED PATIENT RESTING IN BED ON ROOM AIR TOLERATING WELL, NO DISTRESS OR DISCOMFORT NOTED AT THIS TIME, HOB ELEVATED FOR MAXIMUM LUNG EXPANSION, BREATHING EVEN AND UNLABORED. ON TELEMONITORING. WITH NEPHROSTOMY TUBE DRAINING TO GRAVITY. WITH COLOSTOMY BAG INTACT. NO INFILTRATION NOTED IV ON MEMO MIDLINE RUNNING D5 1/2NS @75MLS/HR, CALL LIGHT WITHIN REACH, BED IN LOWEST AND LOCKED POSITION, BED ALARM ON.
[2022-01-11] MEDS: LEVOTHYROXINE SODIUM 100 MCG TABLET PO SCH (08:04)
[2022-01-11] MEDS: SERTRALINE HCL 50 MG TABLET PO SCH (08:04)
[2022-01-11] MEDS: PANTOPRAZOLE 40 MG TABLET.DR PO SCH (08:04)
[2022-01-11] MEDS: APIXABAN 5 MG TABLET PO SCH ×2 (08:05→16:03)
[2022-01-11] MEDS: CEFTRIAXONE 1 G in IV D5W 50 ML IV SCH (16:04)
[2022-01-11] MEDS: IV D5/0.45 NACL 1,000 ML IV PRN (16:09)
[2022-01-11] MEDS: HYDROMORPHONE 1 MG/1 ML DISP.SYRIN IV PRN ×2 (16:17→21:05)
[2022-01-11] MEDS ORDERED: IV 1/2NS 1000 ML 1,000 ML IV SCH (17:00)
--- NOTE | 2022-01-11 18:58 | NUR ---
SUPERVISOR WHEEL SHOP CLOSING NOTE PATIENT COMFORTABLY IN BED, ON ROOM AIR TOLERATING WELL, NO DISTRESS OR DISCOMFORT NOTED AT THIS TIME, HOB ELEVATED FOR MAXIMUM LUNG EXPANSION, BREATHING EVEN AND UNLABORED. ON TELEMONITORING. WITH NEPHROSTOMY TUBE DRAINING TO GRAVITY. WITH COLOSTOMY BAG INTACT. WITH 1/2 NS RUNNING AT 75 ML/HR. NO INFILTRATION NOTED, ALL NEEDS ATTENDED, KEPT DRY AND CLEAN, CALL LIGHT WITHIN REACH, BED IN LOWEST AND LOCKED POSITION, BED ALARM ON, WILL ENDORSE TO PM SHIFT FOR BERNADETTE.
--- NOTE | 2022-01-11 19:30 | NUR ---
VEGETABLE PREPARER OPENING NOTE RECEIVED PATIENT IN BED, A/O X 4. ON ROOM AIR, TOLERATING WELL. NO S/SX OF ACUTE DISTRESS NOTED AT THIS TIME. HOB ELEVATED FOR MAXIMUM LUNG EXPANSION, BREATHING EVEN AND UNLABORED. ON TELEMONITOR SHOWING SR WITH HR OF 72 BPM. 02 SATURATION AT 99%. IV ACCESS NOTED AT MEMO ML RUNNING 1/2 NS AT 75 ML/HR. NO INFILTRATION NOTED. WITH NEPHROSTOMY TUBE DRAINING TO GRAVITY. WITH COLOSTOMY BAG, INTACT. ALL SAFETY MEASURES IN PLACE: BED LOCKED IN LOWEST POSITION, BED ALARM ON, CALL LIGHT WITHIN REACH. WILL CONTINUE TO MONITOR FOR ANY CHANGES.
[2022-01-11] MEDS: ATORVASTATIN 10 MG TABLET PO SCH (21:05)
--- NOTE | 2022-01-11 21:10 | NUR ---
2110 Called blood band to follow up on 1 unit PRBC order, per Vanessa beebe to molded goods spot picker in 30 mins.
--- NOTE | 2022-01-11 22:15 | NUR ---
BLOOD TRANSFUSION STARTED AT 2230. PT CALM AND COMFORTABLE. VS TAKEN PRIOR TO BT. T: 98.5 BP: 150/84 [place]: 75 RR: 18 WILL MONITOR PT CLOSELY.
--- NOTE | 2022-01-11 22:45 | NUR ---
RN NOTE VS TAKEN 15 MINS AFTER BT. T: 99.1 BP: 140/88 CA: 73 RR: 16 PT IS RESTING COMFORTABLY. WILL RETAKE VS AFTER 30 MINUTES.
--- NOTE | 2022-01-11 22:50 | NUR ---
2250 Patient on the phone with GLEN Westfall regarding her pain medication order. New order given by GLEN Westfall to charge nurse. Order noted and carried out.
--- NOTE | 2022-01-11 23:15 | NUR ---
RN NOTE PT TOLERATING BT WELL. PT'S VS 45 MINUTES AFTER BT WAS STARTED: T: 98.5 BP: 145/69 RI: 72 RR: 19
[2022-01-11] MEDS: HYDROCODONE/APAP 10/325MG TABLET PO PRN (23:21)
[2022-01-12] VITALS: BP 149/82
[2022-01-12] MEDS: HYDROMORPHONE 1 MG/1 ML DISP.SYRIN IV PRN ×2 (01:12→05:30)
--- NOTE | 2022-01-12 01:15 | NUR ---
0115 Assisted patient to bedside commode. Linens changed. AM care rendered. Dressing on right nephrostomy site changed. Blood transfusion complete. No signs of adverse reaction noted. Medicated for pain as ordered. All needs anticipated. Call light placed within reach and reminded patient to call for assistance.
[2022-01-12] MEDS: HYDROCODONE/APAP 10/325MG TABLET PO PRN ×2 (03:36→07:38)
[2022-01-12 04:44] VITALS: BP 142/64
[2022-01-12 06:50] LABS: BASOPHILS # (AUTO) 0.1 K/uL (0.0-0.2); BASOPHILS % (AUTO) 0.6 % (0.0-2.0); EOSINOPHILS % (AUTO) 1.3 % (0.0-6.0); HEMATOCRIT 24 % (33-45); HEMOGLOBIN 8.1 g/dL (11.5-14.8); LYMPHOCYTES # (AUTO) 1.5 K/uL (0.8-4.8); MEAN CORPUSCULAR HGB CONC 34 g/dl (31.0-36.0); MEAN CORPUSCULAR VOLUME 81 fL (82-100); MONOCYTES # (AUTO) 1.1 K/uL (0.1-1.30); MONOCYTES % (AUTO) 7.2 % (2.0-12.0); NEUTROPHILS % (AUTO) 80.9 % (43.0-81.0); PLATELET COUNT (AUTO) 310 K/uL (150-450); RED BLOOD CELL COUNT(AUTO) 2.91 MIL/uL (4.0-5.2); WHITE BLOOD COUNT (AUTO) 14.9 K/uL (4.3-11.0)
[2022-01-12 07:13] LABS: CALCIUM, SERUM 8.5 mg/dL (8.5-10.1); CREATININE 1.1 mg/dL (0.6-1.3); MAGNESIUM 1.9 mg/dL (1.8-2.4); PHOSPHORUS 3.8 mg/dL (2.5-4.9); POTASSIUM 4.2 mmol/L (3.5-5.1)
--- NOTE | 2022-01-12 07:17 | NUR ---
CASHIER OR CHECKER STOCK CLERK CLOSING NOTE PT REMAINED STABLE THROUGHOUT THE NIGHT. PT RECEIVED BLOOD TRANSFUSION AT 2220 AND DID NOT SHOW ANY ADVERSE REACTION. PT IS A/O X 4. ON ROOM AIR, TOLERATING WELL. NO S/SX OF ACUTE DISTRESS NOTED. HOB ELEVATED FOR MAXIMUM LUNG EXPANSION, BREATHING EVEN AND UNLABORED. ON TELEMONITOR SHOWING SR WITH HR OF 65 BPM. 02 SATURATION AT 99%. IV ACCESS NOTED AT MEMO ML RUNNING 1/2 NS AT 75 ML/HR. NO INFILTRATION NOTED. WITH NEPHROSTOMY TUBE DRAINING TO GRAVITY. WITH COLOSTOMY BAG, INTACT. ALL DUE MEDS GIVEN. ALL NEEDS ATTENDED TO. KEPT PT CLEAN AND DRY. ALL SAFETY MEASURES IMPLEMENTED: BED LOCKED IN LOWEST POSITION, BED ALARM ON, CALL LIGHT WITHIN REACH. WILL ENDORSE TO AM SHIFT NURSE FOR [place]NA[place].
[2022-01-12 08:00] VITALS: BP 151/76
[2022-01-12] MEDS: PANTOPRAZOLE 40 MG TABLET.DR PO SCH (09:16)
[2022-01-12] MEDS: SERTRALINE HCL 50 MG TABLET PO SCH (09:16)
[2022-01-12] MEDS: LEVOTHYROXINE SODIUM 100 MCG TABLET PO SCH (09:16)
[2022-01-12] MEDS: APIXABAN 5 MG TABLET PO SCH (09:18)
[2022-01-12] MEDS ORDERED: CEFT1VIA15 IV (09:19)
[2022-01-12] MEDS ORDERED: CEFTRIAXONE 1 G in IV D5W 50 ML IV SCH (11:00)
--- NOTE | 2022-01-12 12:46 | NUR ---
DC NOTES PT LEFT UNIT IN STABLE CONDITION, ALL PAPERWORKS SIGNED. PT TEACHING COMPLETE. ALL BELONGINGS SENT WITH PT. NO COMPLICATIONS NOTED. JOLENE PICKED UP PT AT 1245.
== END 2022-01-12 13:00 | disposition home health service (06) | DRG 871 ==
LOC: ER 22:42 → TELE1 01-04 03:11
PROVIDERS: ATTEND Nurse Practitioner Acute Care
PROC: 05HC33Z Insertion of Infusion Device into Left Basilic Vein, Percutaneous Approach (ICD-10-PCS; 2022-01-07)
PROC: 06H03DZ Insertion of Intraluminal Device into Inferior Vena Cava, Percutaneous Approach (ICD-10-PCS; principal; 2022-01-10)
PROC: 30233N1 Transfusion of Nonautologous Red Blood Cells into Peripheral Vein, Percutaneous Approach (ICD-10-PCS; 2022-01-10)
PROC: B51GYZZ Fluoroscopy of Left Pelvic (Iliac) Veins using Other Contrast (ICD-10-PCS; 2022-01-10)
PROC: 06HN33Z Insertion of Infusion Device into Left Femoral Vein, Percutaneous Approach (ICD-10-PCS; 2022-01-10)
PROC: B54CZZA Ultrasonography of Left Lower Extremity Veins, Guidance (ICD-10-PCS; 2022-01-10)
DX: A41.89 Other specified sepsis (principal); U07.1 COVID-19; E43 Unspecified severe protein-calorie malnutrition; N17.0 Acute kidney failure with tubular necrosis; N39.0 Urinary tract infection, site not specified; E87.1 Hypo-osmolality and hyponatremia; D68.59 Other primary thrombophilia; I82.411 Acute embolism and thrombosis of right femoral vein; C79.9 Secondary malignant neoplasm of unspecified site; Z85.048 Personal history of other malignant neoplasm of rectum, rectosigmoid junction, and anus; Z87.440 Personal history of urinary (tract) infections; N18.9 Chronic kidney disease, unspecified; E03.9 Hypothyroidism, unspecified; D64.9 Anemia, unspecified; E78.5 Hyperlipidemia, unspecified; E86.1 Hypovolemia; Z87.442 Personal history of urinary calculi; Z93.3 Colostomy status; Z79.899 Other long term (current) drug therapy; E88.09 Other disorders of plasma-protein metabolism, not elsewhere classified; Z93.6 Other artificial openings of urinary tract status; J98.8 Other specified respiratory disorders
CPT/HCPCS: 36410; 36415; 71045-TC; 76856-TC; 80048-TC; 80053-TC; 80076-TC; 80202-TC; 81001; 82550-TC; 82728-TC; 83605-TC; 83615-TC; 83735-TC; 84100-TC; 84484-TC; 85025-TC; 85378-TC; 85730-TC; 86140-TC; 86850-TC; 87040-TC; 87081-TC; 87086-TC; 93970-TC; 97116-TC; 97530-TC; A4217; A6403; A6407; C1769; C1880; C9803; G0378; J0696; J1170; J1200; J1644; J2185; J2250; J2405; J2704; J2930; J3010; J3370; J3475; J3490; J7030; J7040; J7042; J7050; J7060; P9016; Q9966